=== PATIENT | female | born 1960 | race Asian ===

== ENCOUNTER 2016-07-26 08:25 | Emergency (ER) | payer OTHER ==
[~2016-07-26] VITALS: Ht 157.5 cm; Wt 67.2 kg
[2016-07-26] MEDS ORDERED: ALBU8.5H IH (08:29)
[2016-07-26] MEDS ORDERED: SIMV-261 PO (08:29)
[2016-07-26] MEDS ORDERED: AMLO-511 PO (08:29)
[2016-07-26] MEDS ORDERED: MONT10TA21 PO (08:29)
[2016-07-26 09:45] VITALS: BP 153/73
== END 2016-07-26 10:03 | disposition home or self-care (01) ==
LOC: EMS 08:27
DX: J18.0 Bronchopneumonia, unspecified organism (principal); J45.909 Unspecified asthma, uncomplicated; E78.00 Pure hypercholesterolemia, unspecified; I10 Essential (primary) hypertension
CPT/HCPCS: 99283

== ENCOUNTER 2019-06-19 23:17 | Emergency (ER) | payer OTHER ==
[~2019-06-19] VITALS: Ht 157.5 cm; Wt 63.6 kg
[~2019-06-19 23:17] MED LIST: ALBU8.5H8 IH; AMLO5TAB9 PO; MONT10TA21 PO; SIMV-261 PO
[2019-06-20 00:34] LABS: BASOPHILS % (AUTO) 0.7 % (0.0-2.0); EOSINOPHILS % (AUTO) 1.7 % (1.0-6.0); HEMATOCRIT 38.2 % (36-46); HEMOGLOBIN 12.9 g/dL (12.0-16.0); LYMPHOCYTES # (AUTO) 1.2 K/uL (1.0-4.8); LYMPHOCYTES % (AUTO) 17.6 % (22.0-44.0); MEAN CORPUSCULAR HEMOGLOBIN 31.7 pg (26.0-34.0); MEAN CORPUSCULAR HGB CONC 33.8 G/dL (31.0-37.0); MEAN CORPUSCULAR VOLUME 94 fL (80-100); MONOCYTES # (AUTO) 0.4 K/uL (0.1-1.0); MONOCYTES % (AUTO) 6.3 % (2.0-9.0); NEUTROPHILS # (AUTO) 4.9 K/uL (1.8-7.7); NEUTROPHILS % (AUTO) 73.7 % (40.0-70.0); PLATELET COUNT (AUTO) 261 K/uL (150-450); RED BLOOD CELL COUNT(AUTO) 4.08 MIL/uL (4.00-5.20); RED CELL DISTRIBUTION WIDTH 12.9 % (11.5-14.5)
[2019-06-20 00:41] LABS: ANION GAP 2 mmol/L (8-16); CALCIUM, TOTAL 9.5 mg/dL (8.8-10.5); CARBON DIOXIDE 28 mmol/L (22-29); CHLORIDE 103 mmol/L (98-107); CREATININE 0.77 mg/dL (0.60-1.30); GLOMERULAR FILTR. RATE CALC > 60 mL/min (>60); GLUCOSE,RANDOM 110 mg/dL (70-110); POTASSIUM 3.4 mmol/L (3.5-5.1); SODIUM SERUM 133 mmol/L (136-145); UREA NITROGEN, BLOOD 15 mg/dL (7-18)
[2019-06-20 00:46] LABS: INR 0.9 (0.9-1.1); PROTHROMBIN TIME 9.5 SEC (9.4-11.6)
[2019-06-20 00:55] LABS: B-TYPE NATRIURETIC PEPTIDE 12 pg/mL (0-100)
[2019-06-20 01:15] LABS: ALANINE AMINOTRANSFERASE 48 U/L (12-78); ALKALINE PHOSPHATASE 106 U/L (46-116); ASPARTATE AMINOTRANSFERASE 34 U/L (15-37); BILIRUBIN,TOTAL 0.3 mg/dL (0.1-1.0); CREATINE KINASE, TOTAL ONLY 191 U/L (26-192); THYROID STIMULATING HORMONE 2.72 uIU/mL (0.36-3.74); TOTAL PROTEIN, SERUM 7.8 g/dL (6.4-8.2)
[2019-06-20 02:41] LABS: APPEARANCE,URINE CLEAR (CLEAR); BILIRUBIN,URINE NEGATIVE (NEGATIVE); GLUCOSE, URINE (UA) NEGATIVE (NEGATIVE); KETONES,URINE NEGATIVE (NEGATIVE); LEUKOCYTE ESTERASE ,URINE NEGATIVE (NEGATIVE); NITRATE,URINE NEGATIVE (NEGATIVE); OCCULT BLOOD,URINE NEGATIVE (NEGATIVE); PROTEIN,URINE NEGATIVE (NEGATIVE); UROBILINOGEN,URINE 0.2 mg/dL (<=1.0)
[2019-06-20] MEDS ORDERED: POTASSIUM CHLORIDE 10% 40 MEQ/30 ML LIQUID UDCUP PO ONE (02:45)
[2019-06-20 04:30] VITALS: BP 137/79
== END 2019-06-20 04:40 | disposition home or self-care (01) ==
LOC: EMS 23:17
DX: I49.3 Ventricular premature depolarization (principal); R00.2 Palpitations; E87.6 Hypokalemia; I10 Essential (primary) hypertension; E78.00 Pure hypercholesterolemia, unspecified; J45.909 Unspecified asthma, uncomplicated
CPT/HCPCS: 83735; 84443; 93005

== ENCOUNTER 2021-08-29 05:34 | Day surgery (SDC) | payer OTHER ==
[2021-08-26 11:44] LABS: COVID AG,FIA SOURCE NASOPHARYNGEAL
[2021-08-26 11:50] LABS: BASOPHILS % (AUTO) 1.4 % (0.0-2.0); HEMATOCRIT 37.5 % (36-46); HEMOGLOBIN 12.7 g/dL (12.0-16.0); LYMPHOCYTES # (AUTO) 1.4 K/uL (1.0-4.8); LYMPHOCYTES % (AUTO) 34.8 % (22.0-44.0); MEAN CORPUSCULAR HEMOGLOBIN 31.2 pg (26.0-34.0); MEAN CORPUSCULAR HGB CONC 33.9 G/dL (31.0-37.0); MEAN CORPUSCULAR VOLUME 92 fL (80-100); MONOCYTES # (AUTO) 0.3 K/uL (0.1-1.0); MONOCYTES % (AUTO) 7.3 % (2.0-9.0); NEUTROPHILS # (AUTO) 2.1 K/uL (1.8-7.7); NEUTROPHILS % (AUTO) 53.5 % (40.0-70.0); PLATELET COUNT (AUTO) 247 K/uL (150-450); RED BLOOD CELL COUNT(AUTO) 4.07 MIL/uL (4.00-5.20); RED CELL DISTRIBUTION WIDTH 13.2 % (11.5-14.5)
[2021-08-26 11:57] LABS: ANION GAP 8 mmol/L (8-16); CARBON DIOXIDE 29 mmol/L (22-29); CHLORIDE 105 mmol/L (98-107); CREATININE 0.77 mg/dL (0.60-1.30); GLOMERULAR FILTR. RATE CALC > 60 mL/min (>60); GLUCOSE,RANDOM 95 mg/dL (70-110); SODIUM SERUM 142 mmol/L (136-145); UREA NITROGEN, BLOOD 19 mg/dL (7-18)
[2021-08-26 11:58] LABS: PROTHROMBIN TIME 10.2 SEC (9.4-11.6)
[2021-08-26 12:03] LABS: ALANINE AMINOTRANSFERASE 26 U/L (12-78); ALKALINE PHOSPHATASE 87 U/L (46-116); ASPARTATE AMINOTRANSFERASE 24 U/L (15-37); BILIRUBIN,TOTAL 0.4 mg/dL (0.1-1.0); TOTAL PROTEIN, SERUM 7.5 g/dL (6.4-8.2)
[~2021-08-29] VITALS: Ht 157.5 cm; Wt 65.0 kg
[~2021-08-29 05:34] MED LIST changes: +AMLO-257 PO; -AMLO5TAB9 PO; +ASPI-1450 PO; +ATOR10TA84 PO; +FAMO20 PO; +FURO20 PO; +METO25 PO; +MONT-35 PO; -MONT10TA21 PO; +POTA8TAB71 PO; +SODIUM CHLORIDE 0.9% 1,000 ML IV ONE; +SODIUM CHLORIDE 0.9% 1,000 ML ONE
[2021-08-29] MEDS ORDERED: HEPARIN SODIUM,PORCINE 1,000 UNITS/ML 10 ML VIAL ONE (07:08)
[2021-08-29] MEDS ORDERED: SODIUM BICARBONATE 50 MEQ/50 ML VIAL ONE (07:08)
[2021-08-29] MEDS ORDERED: IOHEXOL 300 MG/ML 50 ML VIAL ONE (07:08)
[2021-08-29] MEDS ORDERED: IOHEXOL 300 MG/ML 150 ML VIAL ONE (07:09)
[2021-08-29] MEDS ORDERED: HEPARIN SODIUM 1000 UNITS/NS 1,000 ML ONE (07:09)
[2021-08-29] MEDS ORDERED: IOHEXOL 300 MG/ML 100 ML VIAL ONE (07:09)
[2021-08-29] MEDS ORDERED: FentaNYL CITRATE PF 100 MCG/2 ML VIAL ONE (08:43)
[2021-08-29] MEDS ORDERED: MIDAZOLAM HCL 2 MG/2 ML VIAL ONE ×2 (08:43→09:06)
[2021-08-29] MEDS ORDERED: SODIUM CHLORIDE 0.9% 500 ML IV ONE ×2 (08:45→09:30)
[2021-08-29] MEDS ORDERED: HEPARIN SODIUM 1000 UNITS/NS 1,000 ML IARTER ONE (08:45)
[2021-08-29] MEDS ORDERED: IOHEXOL 300 MG/ML 150 ML VIAL IARTER ONE (09:00)
[2021-08-29] MEDS ORDERED: LIDOCAINE 1% 30 ML/SOD BICARB 8.4% 4 ML SQ ONE (09:00)
[2021-08-29] MEDS ORDERED: FentaNYL CITRATE PF 100 MCG/2 ML VIAL IVP ONE ×2 (09:15)
[2021-08-29] MEDS ORDERED: MIDAZOLAM HCL 2 MG/2 ML VIAL IVP ONE ×2 (09:15)
[2021-08-29] MEDS ORDERED: IOHEXOL 300 MG/ML 100 ML VIAL IARTER ONE (09:30)
[2021-08-29] MEDS ORDERED: HYDROCODONE/ACETAMINOPHEN 5-325 MG TABLET PO PRN (09:30)
== END 2021-08-29 12:30 | disposition home or self-care (01) ==
LOC: CATHLAB 05:34
PROVIDERS: ATTEND Internal Medicine Cardiovascular Disease
DX: R94.39 Abnormal result of other cardiovascular function study (principal); I35.1 Nonrheumatic aortic (valve) insufficiency; J45.909 Unspecified asthma, uncomplicated; E78.00 Pure hypercholesterolemia, unspecified; I10 Essential (primary) hypertension; Z79.82 Long term (current) use of aspirin; Z79.899 Other long term (current) drug therapy; Z98.890 Other specified postprocedural states; Z79.01 Long term (current) use of anticoagulants
CPT/HCPCS: 36415; 80053; 85025; 85610; 85730; 87426; 93460; 99152; 99153; C1760; C9803; J1644 ×2; J2250; J3010; J3490; J7030; Q9967 ×2

== ENCOUNTER 2022-01-10 19:58 | Emergency (ER) | payer OTHER ==
[~2022-01-10] VITALS: Ht 157.5 cm; Wt 63.6 kg
[~2022-01-10 19:58] MED LIST changes: -SODIUM CHLORIDE 0.9% 1,000 ML IV ONE; -SODIUM CHLORIDE 0.9% 1,000 ML ONE
[2022-01-10] MEDS ORDERED: ROSU10TA72 PO (20:20)
[2022-01-10] MEDS ORDERED: AMLO2.5T96 PO (20:20)
[2022-01-10] MEDS ORDERED: METO-408 PO (20:20)
[2022-01-11] MEDS ORDERED: PROPARACAINE HCL 0.5% 15 ML OPHTHALMIC SOLUTION OD ONE
[2022-01-11] MEDS ORDERED: FLUORESCEIN SODIUM 1 MG STRIP OD ONE
[2022-01-11] MEDS ORDERED: OFLOXACIN 0.3% 5 ML OPHTHALMIC SOLUTION OD ONE (01:15)
[2022-01-11 01:46] VITALS: BP 146/72
== END 2022-01-11 01:47 | disposition home or self-care (01) ==
LOC: EMS 20:02
DX: S05.01XA Injury of conjunctiva and corneal abrasion without foreign body, right eye, initial encounter (principal); E78.00 Pure hypercholesterolemia, unspecified; I10 Essential (primary) hypertension; J45.909 Unspecified asthma, uncomplicated; W20.8XXA Other cause of strike by thrown, projected or falling object, initial encounter; Y93.89 Activity, other specified; Y92.89 Other specified places as the place of occurrence of the external cause; Y99.8 Other external cause status
CPT/HCPCS: 99284; J9035; Z7502; Z7610

== ENCOUNTER 2022-04-13 23:59 | Emergency (ER) | payer OTHER ==
[~2022-04-13] VITALS: Ht 157.5 cm; Wt 65.0 kg
[~2022-04-13 23:59] MED LIST changes: -AMLO-257 PO; +AMLO2.5T96 PO; +ATOR10TA PO; -ATOR10TA84 PO; +METO-408 PO; -METO25 PO; +ROSU10TA72 PO; -SIMV-261 PO
[2022-04-14 00:28] VITALS: BP 120/60
[2022-04-14 00:28] LABS: APPEARANCE,URINE CLEAR (CLEAR); BILIRUBIN,URINE NEGATIVE (NEGATIVE); GLUCOSE, URINE (UA) NEGATIVE (NEGATIVE); KETONES,URINE NEGATIVE (NEGATIVE); LEUKOCYTE ESTERASE ,URINE LARGE (NEGATIVE); NITRATE,URINE NEGATIVE (NEGATIVE); OCCULT BLOOD,URINE LARGE (NEGATIVE); PH,URINE 6.5 (5.0-8.0); PROTEIN,URINE NEGATIVE (NEGATIVE); SPECIFIC GRAVITIY, URINE 1.003 (1.003-1.030); UROBILINOGEN,URINE <=1.0 mg/dL (<=1.0)
[2022-04-14 00:38] LABS: BACTERIA,URINE Rare /HPF (None Seen); RBC,URINE 0-2 /HPF (0-2)
[2022-04-14] MEDS ORDERED: CEPHALEXIN MONOHYDRATE 500 MG CAPSULE PO ONE (01:00)
[2022-04-14] MEDS ORDERED: PHENAZOPYRIDINE HCL 100 MG TABLET PO ONE (01:00)
[2022-04-14] MEDS ORDERED: CEPH-558 PO (01:08)
[2022-04-14] MEDS ORDERED: PHEN-846 PO (01:08)
== END 2022-04-14 01:17 | disposition home or self-care (01) ==
LOC: EMS 04-14 00:02
DX: N39.0 Urinary tract infection, site not specified (principal); E78.00 Pure hypercholesterolemia, unspecified; I10 Essential (primary) hypertension; J45.909 Unspecified asthma, uncomplicated; R31.9 Hematuria, unspecified
CPT/HCPCS: 81001; 87086; 87186; 99283

== ENCOUNTER 2022-05-22 09:10 | Emergency (ER) | payer OTHER ==
[~2022-05-22] VITALS: Ht 167.6 cm; Wt 70.0 kg
[~2022-05-22 09:10] MED LIST changes: +CEPH-558 PO; +PHEN-846 PO
[2022-05-22] MEDS ORDERED: ROSU10TA72 PO (09:39)
[2022-05-22] MEDS ORDERED: DULERA MISC (09:40)
[2022-05-22 09:49] LABS: COVID AG,FIA SOURCE NASAL SWAB
[2022-05-22 10:34] LABS: INFLUENZA TYPE A NEGATIVE FOR TYPE A (NEGATIVE); INFLUENZA TYPE B NEGATIVE FOR TYPE B (NEGATIVE)
[2022-05-22 11:11] VITALS: BP 141/68
== END 2022-05-22 12:38 | disposition home or self-care (01) ==
LOC: EMS 09:16
DX: B34.9 Viral infection, unspecified (principal); J45.909 Unspecified asthma, uncomplicated; I11.9 Hypertensive heart disease without heart failure; E78.00 Pure hypercholesterolemia, unspecified; Z20.822 Contact with and (suspected) exposure to COVID-19
CPT/HCPCS: 71046; 87804; 99284

== ENCOUNTER 2022-05-28 21:20 | Emergency (ER) | payer OTHER ==
[~2022-05-28] VITALS: Ht 157.5 cm; Wt 64.5 kg
[~2022-05-28 21:20] MED LIST changes: -ATOR10TA PO; -CEPH-558 PO; +DULERA MISC; -PHEN-846 PO
[2022-05-28 21:59] LABS: EOSINOPHILS % (AUTO) 1.1 % (1.0-6.0); HEMATOCRIT 38.6 % (36-46); HEMOGLOBIN 12.8 g/dL (12.0-16.0); LYMPHOCYTES # (AUTO) 1.4 K/uL (1.0-4.8); LYMPHOCYTES % (AUTO) 27.1 % (22.0-44.0); MEAN CORPUSCULAR HEMOGLOBIN 30.9 pg (26.0-34.0); MEAN CORPUSCULAR VOLUME 93 fL (80-100); MONOCYTES # (AUTO) 0.3 K/uL (0.1-1.0); MONOCYTES % (AUTO) 6.5 % (2.0-9.0); NEUTROPHILS # (AUTO) 3.4 K/uL (1.8-7.7); NEUTROPHILS % (AUTO) 64.3 % (40.0-70.0); PLATELET COUNT (AUTO) 223 K/uL (150-450); RED BLOOD CELL COUNT(AUTO) 4.14 MIL/uL (4.00-5.20); RED CELL DISTRIBUTION WIDTH 12.8 % (11.5-14.5)
[2022-05-28 22:07] LABS: CALCIUM, TOTAL 9.5 mg/dL (8.8-10.5); CREATININE 1.04 mg/dL (0.60-1.30); POTASSIUM 3.4 mmol/L (3.5-5.1)
[2022-05-28 22:11] LABS: PROTHROMBIN TIME 10.3 SEC (9.4-11.6)
[2022-05-28 22:33] LABS: ALBUMIN 4.2 g/dL (3.4-5.0); BILIRUBIN,TOTAL 0.3 mg/dL (0.1-1.0); TOTAL PROTEIN, SERUM 8.2 g/dL (6.4-8.2)
[2022-05-29 01:12] VITALS: BP 120/78
== END 2022-05-29 01:14 | disposition home or self-care (01) ==
LOC: EMS 22:30
DX: R07.9 Chest pain, unspecified (principal); R06.02 Shortness of breath; J45.909 Unspecified asthma, uncomplicated; E78.00 Pure hypercholesterolemia, unspecified; I11.9 Hypertensive heart disease without heart failure
CPT/HCPCS: 71045; 80053; 82550; 83880; 84484; 85025; 85610; 85730; 93005; 99285; 36415-L1; 36415-TC

== ENCOUNTER 2023-05-09 07:15 | Emergency (ER) | payer OTHER ==
[~2023-05-09] VITALS: Ht 157.5 cm; Wt 65.5 kg
[~2023-05-09 07:15] MED LIST changes: -DULERA MISC; +MOME13HF12 IH
[2023-05-09 07:17] VITALS: TEMP 98
[2023-05-09 07:28] LABS: COVID AG,FIA SOURCE NASAL SWAB
[2023-05-09 07:58] LABS: SARS-COV2 (COVID) ANTIGEN,FIA Negative (Negative)
[2023-05-09 07:59] LABS: INFLUENZA TYPE A NEGATIVE FOR TYPE A (NEGATIVE); INFLUENZA TYPE B POSITIVE FOR TYPE B (NEGATIVE)
[2023-05-09 08:14] LABS: RAPID GROUP A STREP NEGATIVE (NEGATIVE)
[2023-05-09] MEDS ORDERED: GUAIFDM PO (09:28)
[2023-05-09] MEDS ORDERED: ACET-2080 PO (09:28)
[2023-05-09] MEDS ORDERED: IBUP-1554 PO (09:28)
[2023-05-09 09:30] VITALS: BP 112/66; PULSE 84; RESP 14
== END 2023-05-09 09:57 | disposition home or self-care (01) ==
LOC: EMS 07:16
DX: J06.9 Acute upper respiratory infection, unspecified (principal); J45.909 Unspecified asthma, uncomplicated; E78.00 Pure hypercholesterolemia, unspecified; I10 Essential (primary) hypertension; I51.9 Heart disease, unspecified; Z88.8 Allergy status to other drugs, medicaments and biological substances; Z20.822 Contact with and (suspected) exposure to COVID-19
CPT/HCPCS: 87430; 87804; 99283

== ENCOUNTER 2024-05-16 08:46 | Emergency (ER) | payer OTHER ==
[~2024-05-16] VITALS: Ht 157.5 cm; Wt 62.7 kg
[~2024-05-16 08:46] MED LIST changes: +ACET-2080 PO; -FURO20 PO; +FURO20TA5 PO; +GUAIFDM PO; +IBUP-1554 PO
[2024-05-16 08:49] VITALS: BP 113/56; PULSE 89; RESP 18; TEMP 98.3; O2SAT 98
[2024-05-16] MEDS ORDERED: CHOL25TA4 PO (08:51)
[2024-05-16] MEDS ORDERED: FERR325T23 PO (08:51)
[2024-05-16] MEDS ORDERED: LORA10TA7 PO (08:51)
[2024-05-16 09:13] LABS: COVID AG,FIA SOURCE NASAL SWAB
[2024-05-16 09:55] LABS: INFLUENZA TYPE A NEGATIVE FOR TYPE A (NEGATIVE); INFLUENZA TYPE B NEGATIVE FOR TYPE B (NEGATIVE); SARS-COV2 (COVID) ANTIGEN,FIA Negative (Negative)
[2024-05-16] MEDS ORDERED: BENZ-227 PO (10:01)
== END 2024-05-16 10:25 | disposition home or self-care (01) ==
LOC: EMS 08:47
DX: J40 Bronchitis, not specified as acute or chronic (principal); I10 Essential (primary) hypertension; E78.00 Pure hypercholesterolemia, unspecified; Z88.1 Allergy status to other antibiotic agents; Z79.82 Long term (current) use of aspirin; Z79.899 Other long term (current) drug therapy; Z20.822 Contact with and (suspected) exposure to COVID-19
CPT/HCPCS: 71045; 87804; 99284